=== PATIENT | male | born 1985 | race African-American/Black ===

== ENCOUNTER 2024-06-17 14:02 | Inpatient (IN) | payer MEDICAID, OTHER ==
[~2024-06-17] VITALS: Ht 177.8 cm; Wt 79.4 kg
[~2024-06-17 14:02] MED LIST: TNFMISC
[2024-06-17 17:10] LABS: COVID AG,FIA SOURCE NASAL SWAB
[2024-06-17 17:18] LABS: APPEARANCE,URINE CLEAR (CLEAR); BILIRUBIN,URINE NEGATIVE (NEGATIVE); COLOR,URINE YELLOW (YELLOW); GLUCOSE, URINE (UA) NEGATIVE (NEGATIVE); KETONES,URINE NEGATIVE (NEGATIVE); LEUKOCYTE ESTERASE ,URINE NEGATIVE (NEGATIVE); NITRATE,URINE NEGATIVE (NEGATIVE); OCCULT BLOOD,URINE NEGATIVE (NEGATIVE); PROTEIN,URINE NEGATIVE (NEGATIVE); SPECIFIC GRAVITIY, URINE 1.017 (1.003-1.030); UROBILINOGEN,URINE <=1.0 mg/dL (<=1.0)
[2024-06-17 17:26] LABS: ALCOHOL, URINE DRUG SCREEN NEGATIVE (NEGATIVE); AMPHET/METH SCREEN,URINE NEGATIVE (NEGATIVE); BARBITURATE SCREEN, URINE NEGATIVE (NEGATIVE); BENZODIAZEPINES SCREEN,URINE NEGATIVE (NEGATIVE); CANNABINOID SCREEN,URINE NEGATIVE (NEGATIVE); COCAINE SCREEN,URINE NEGATIVE (NEGATIVE); METHADONE SCREEN, URINE NEGATIVE (NEGATIVE); OPIATE SCREEN,URINE NEGATIVE (NEGATIVE); PHENCYCLIDINE SCREEN,URINE NEGATIVE (NEGATIVE)
[2024-06-17] MEDS ORDERED: ZOLPIDEM TARTRATE 10 MG TABLET PO PRN (17:30)
[2024-06-17 17:32] LABS: SARS-COV2 (COVID) ANTIGEN,FIA Negative (Negative)
[2024-06-18 02:59] VITALS: BP 100/70; PULSE 90; RESP 16; TEMP 97.4; O2SAT 100
[2024-06-18] MEDS ORDERED: CloNIDine HCL 0.1 MG TABLET PO PRN (07:00)
[2024-06-18] MEDS ORDERED: MAG HYDROX/ALUMINUM HYD/SIMETH ES 30 ML SUSPENSION UDCUP PO PRN (07:00)
[2024-06-18] MEDS ORDERED: LOPERAMIDE HCL 2 MG CAPSULE PO PRN (07:00)
[2024-06-18] MEDS ORDERED: BACITRACIN 28 GM OINTMENT TP PRN (07:00)
[2024-06-18] MEDS ORDERED: MAGNESIUM HYDROXIDE SUSPENSION 30 ML UDCUP PO PRN (07:00)
[2024-06-18] MEDS ORDERED: ONDANSETRON 4 MG TABLET PO PRN (07:00)
[2024-06-18] MEDS ORDERED: PETROLATUM,WHITE 28 GM JELLY TP PRN (07:00)
[2024-06-18] MEDS ORDERED: BENZOCAINE/MENTHOL [CEPACOL] LOZENGE PO PRN (07:00)
[2024-06-18] MEDS ORDERED: DOCUSATE SODIUM 100 MG CAPSULE PO PRN (07:00)
[2024-06-18] MEDS ORDERED: IBUPROFEN 600 MG TABLET PO PRN (07:00)
[2024-06-18] MEDS ORDERED: OMEPRAZOLE 20 MG CAPSULE PO PRN (07:00)
[2024-06-18] MEDS ORDERED: ALBUTEROL SULFATE HFA 90 MCG/PUFF 8 GM INHALER IH PRN (07:00)
[2024-06-18 08:19] VITALS: BP_SYST 100; PULSE 73; RESP 18; TEMP 97.7; O2SAT 99
[2024-06-18] MEDS: DIVALPROEX SODIUM 500 MG DR TABLET PO SCH (16:43)
[2024-06-18] MEDS: RisperiDONE 4 MG TABLET PO SCH (16:43)
[2024-06-18 21:34] VITALS: BP 107/63; PULSE 79; RESP 18; TEMP 97.7; O2SAT 98
[2024-06-19 08:08] VITALS: BP 97/54; PULSE 73; RESP 18; TEMP 97.7; O2SAT 98
[2024-06-19 21:35] VITALS: BP 111/72; PULSE 76; RESP 18; TEMP 97.7; O2SAT 98
[2024-06-20] MEDS: HALOPERIDOL 5 MG TABLET PO PRN (16:12)
[2024-06-20] MEDS: LORazepam 2 MG TABLET PO PRN (16:12)
[2024-06-20 20:22] VITALS: BP 115/63; PULSE 83; RESP 18; TEMP 98.3; O2SAT 100
[2024-06-21 09:21] VITALS: BP 119/72; PULSE 85; RESP 19; TEMP 97.8; O2SAT 98
[2024-06-21 20:00] VITALS: BP 115/72; PULSE 89; RESP 16; TEMP 99; O2SAT 99
[2024-06-22 08:30] VITALS: BP 103/71; PULSE 80; RESP 17; O2SAT 97
[2024-06-22 09:30] VITALS: TEMP 99.5; O2SAT 97
[2024-06-22 09:54] VITALS: RESP 17; TEMP 100.4
[2024-06-22] MEDS: ACETAMINOPHEN 325 MG TABLET PO PRN (09:54)
[2024-06-22 10:54] VITALS: RESP 18; TEMP 98.6
[2024-06-22 21:00] VITALS: RESP 16
[2024-06-23 09:05] VITALS: RESP 16
[2024-06-23 21:30] VITALS: BP 94/75; PULSE 102; RESP 19; TEMP 98.2; O2SAT 97
[2024-06-24] MEDS ORDERED: DIVA-112 PO (07:54)
[2024-06-24] MEDS ORDERED: RISP4TAB94 PO (07:55)
[2024-06-24 08:09] VITALS: BP 97/63; PULSE 82; RESP 16; TEMP 99.5; O2SAT 98
== END 2024-06-24 19:33 | DRG 750 ==
LOC: EMS 14:07 → B3A 20:49 → B2S 06-21 16:29
PROVIDERS: ADMIT Psychiatry & Neurology Psychiatry; ATTEND Psychiatry & Neurology Psychiatry
DX: F20.9 Schizophrenia, unspecified (principal); R45.851 Suicidal ideations; F32.A Depression, unspecified; G47.00 Insomnia, unspecified; K59.00 Constipation, unspecified; Z20.822 Contact with and (suspected) exposure to COVID-19; F41.0 Panic disorder [episodic paroxysmal anxiety]; Z79.899 Other long term (current) drug therapy
CPT/HCPCS: 80307; 81003; 87081